=== PATIENT | female | born 1950 | race African-American/Black ===

== ENCOUNTER 2016-09-14 05:24 | Day surgery (SDC) | payer OTHER, BC ==
[~2016-09-14] VITALS: Ht 160 cm; Wt 91.6 kg
--- NOTE | ~2016-09-14 | O ---
[address] [address] OPERATIVE REPORT Name: ERICA BARRERA Room #: 534-P [facility]..#: [id number] Admission: 09/14/16 Attend Phys: Milton De León MD, F Discharge: Date of : 54 Report #: [id number] THIS REPORT FOR: //name// CC: Milton De León [facility] DATE OF SERVICE: 09/14/2016 SURGEON: Milton De León MD SURGICAL ELASTIC KNITTER: Seven Allen MD SECOND HOME CARE GIVER: MANUEL López PREOPERATIVE DIAGNOSES: 1. Morbid obesity (body mass index 40). 2. Right abdominal skin lesion. 3. Obstructive sleep apnea. 4. Hypertension. 5. Arthritis. 6. History of pulmonary embolism. 7. Asthma. 8. Migraine headaches. POSTOPERATIVE DIAGNOSES: 1. Morbid obesity (body mass index 40). 2. Right abdominal skin lesion. 3. Intraabdominal adhesions. 4. Obstructive sleep apnea. 5. Hypertension. 6. Arthritis. 7. History of pulmonary embolism. 8. Asthma. 9. Migraine headaches. PROCEDURES: 1. Laparoscopic sleeve gastrectomy with EGD. 2. Laparoscopic lysis of adhesions. 3. Excision of right abdominal skin lesion. ANESTHESIA: General endotracheal anesthesia and local anesthetic. ESTIMATED BLOOD LOSS: 5 mL. SPECIMEN: Lateral stomach. COMPLICATIONS: None appreciated. [address] [address] OPERATIVE REPORT Name: ERICA BARRERA Room #: 534-P [facility]#: [id number] Admission: 09/14/16 Attend Phys: Milton De León MD, F Discharge: Date of : 54 Report #: [id number] INDICATIONS FOR PROCEDURE: This is a 65-year-old female patient who is morbidly obese with a body mass index of 40 (standing 5 feet 3 inches, weighing 212 pounds at her last visit). Her maximum weight is 240 pounds. She has had issues with her weight over the past several years after having retired and with decreased activity. She also has difficulty with arthritis involving her left knee. She has tried numerous weight loss programs and plans with limited weight loss success. Any amount of weight she has lost, she has quickly regained plus additional weight after stopping the modality. She has numerous associated comorbid conditions and in addition has a history of pulmonary embolism. She had been taking Xarelto up until the past few days before her operation. She has been bridged with Lovenox. She has also been off her prednisone over the past 4-1/2 months and took her last dose of Remicade in late June. She has been cleared from a multidisciplinary standpoint. She presents now for laparoscopic sleeve gastrectomy with EGD. OPERATIVE FINDINGS: On EGD, the patient's esophagus was normal down to the GE junction and Z-line measured at 38 cm from the teeth. The esophagus was normal. There was no evidence for hiatal hernia. The stomach and duodenum down to the third portion showed no polyps, diverticula, masses, or ulcers. On retroflexion of the scope within the antrum, there was no evidence for hiatal hernia. Laparoscopically, the patient had intra-abdominal adhesions in the left upper quadrant, which required takedown (lasting 10 minutes) before I was able to proceed with the operation and placement of the ports. The sleeve staple line was 4 cm from the pylorus, 3 cm lateral to the incisura, and 1 cm lateral to the gastroesophageal junction. There was no evidence for a hiatal hernia. No other significant intraabdominal pathology was identified. There was no evidence for a staple line leak. The leak test involved gently insufflating the stomach with carbon dioxide using the endoscope immediately after applying Tisseel to the staple line. No bubbles were seen forming in the Tisseel. After removal of the stomach from the patient's abdominal cavity, the excised stomach held in nearly 1 liter of fluid. At the conclusion of the operation, the sponge, needle, and instrument counts were correct. No other significant intraabdominal pathology was identified. There was no evidence for iatrogenic injury. DESCRIPTION OF PROCEDURE IN DETAIL: After the benefits and risks of the procedure were explained to the patient, which include, but are not limited to risks of bleeding, infection, risk of staple line leak, postoperative pain, postoperative expectations, informed consent was obtained. The patient was identified in the preoperative holding area. She was given IV antibiotics as documented in the chart in line with the SCIP protocol. The patient was then taken to the operating room and she was placed in the supine position. SCDs were placed on the patient's bilateral lower extremities and pneumatic compression was initiated. The patient was given IV sedation and she was intubated without incident. An orogastric tube and bite block were placed by [address] [address] OPERATIVE REPORT Name: HOLLYERICALAUREN PEREZ Room #: [address] [place] [address] M.R.#: [id number] Admission: 09/14/16 Attend Phys: Milton De León MD, F Discharge: Date of : 54 Report #: [id number] anesthesia. A time-out was then performed to identify the patient and procedure. The patient was placed in the low lying dorsal lithotomy position in [facility]. The patient was secured to the bed on a beanbag that was appropriately deflated. On EGD, the gastroscope was inserted into the patient's oropharynx, passed down the esophagus into the stomach and beyond the pylorus to the duodenum. The scope was then slowly withdrawn. The scope was retroflexed in the antrum of the stomach. The scope was then straightened and slightly withdrawn. The laparoscopic portion was undertaken next. Local anesthetic was infiltrated into the skin and subcutaneous tissue in the left supraumbilical area where a small transverse incision was made. A 5-mm Visiport was placed intraperitoneally with a 0-degree angled laparoscope. Pneumoperitoneum was then achieved with insufflation of carbon dioxide to 15 mmHg. A 30-degree angled laparoscope was inserted. Local anesthetic was infiltrated into the skin and subcutaneous tissue in the right abdomen where a 15-mm transverse incision was made and a 15-mm Visiport was placed intraperitoneally under direct visualization after local anesthetic had been infiltrated into the skin and subcutaneous tissue. The adhesions in the left upper quadrant of the abdomen were then carefully taken down with judicious use of the ultrasonic dissector as well as blunt dissection. After taking these down, I was able to place my other 5-mm ports in the left abdomen. A left mid and left lateral 5 mm port was placed under direct visualization after local anesthetic was infiltrated into the skin and subcutaneous tissue and appropriately sized incisions were made. Operative findings are as noted above. The Nathansen liver retractor was placed next. A small stab wound was made in the subxiphoid area after infiltrating local anesthetic into the area. The Yaritza retractor was used to penetrate the fascia and retract the liver in a cephalad and anterior direction. The retractor was held in place with the iron grinder set up operator internal apparatus. The patient was then placed in the steep reverse Trendelenburg position. The gastroscope and orogastric tube were positioned under my direction by anesthesia. The gastrosplenic ligament and short gastric vessels were then carefully taken down with the ultrasonic dissector with good hemostasis up to the left leia of the diaphragm. Adhesions were taken down along the phrenoesophageal area as well to ensure no hiatal hernia. Dissection was carried inferiorly to transect the gastrosplenic and gastrocolic ligament down to an area of 4 cm proximal to the pylorus. This was measured intraoperatively with a grasper. The stomach was then rotated medially to ensure no posterior attachments to the stomach. The attachments were carefully taken down with blunt dissection and judicious use of the ultrasonic dissector. The orogastric tube was then removed by anesthesia again under my direction. The stapling was commenced. Blue load laparoscopic 65 mm DENEEN staplers buttressed with [address] [address] OPERATIVE REPORT Name: ERICA BARRERA Room #: 534-P [facility]..#: [id number] Admission: 09/14/16 Attend Phys: Milton De León MD, F Discharge: Date of : 54 Report #: [id number] Terra-Strips were used to start the staple line, which moved in a distal to proximal fashion. The gastroscope was used as a 34-[place]izen [place] bougie. After the first two firings of the stapler, the staple loads were changed to the green loads again buttressed with Terra-Strips. The stomach was then transected and placed in the right upper quadrant of the abdomen. The stomach was removed through the 15-mm port. An 0 PDS suture was then used to approximate the fascial opening using the Valentin-Minh laparoscopic fascial closure device. The suture was tagged and the port was replaced. Tisseel was then applied to the gastric staple line using the [employer] aerosolizer. Immediately after doing so, the gastroscope was used to gently insufflate the stomach and slowly withdrawn the scope to ensure good hemostasis endoluminally within the stomach/gastric sleeve and to test for a leak. The leak test as described above was performed with no evidence for leak. The scope was then slowly withdrawn through the patient's oropharynx. The abdominal cavity was then briefly scanned and there was no other pathology or evidence for iatrogenic injury. The sponge, needle, and instrument counts were correct. The Yaritza liver retractor was removed under direct visualization. The abdominal cavity was then desufflated and the fascial suture was tied. The suture was tied under direct visualization prior to full desufflation to ensure no incorporation of intraabdominal content. All ports were removed. Interrupted subcuticular 4-0 Monocryl sutures and Dermabond were used to close the skin incisions. The right abdominal skin lesion was excised next. Local anesthetic was infiltrated into the skin and subcutaneous tissue at the base of the lesion. The lesion was excised sharply. Electrocautery was used to cauterize the edge of the skin to ensure hemostasis. A dressing was applied to this area. The patient tolerated the procedure well. She was awakened, extubated, and taken to recovery room in stable condition with no apparent intraoperative complications. <ELECTRONICALLY SIGNED> By: Milton De León MD, FACS 09/14/16 1531 [id number] 1526 Milton De León MD, FACS /nt
--- NOTE | ~2016-09-14 | S ---
[facility] [place] [address] SURGICAL PATH RPT PROCEDURE Name: ERICA JENNINGS TERENCEONIA Room #: DEP [facility] M.R.#: [id number] Admission: 09/14/16 Date of : 54 Discharge: 09/15/16 Report #: [id number] Path Case #: [id number] PATHOLOGY REPORT COLLECTION DATE: 09/14/2016 RECEIVED DATE: 09/14/2016 SUBMITTING PHYS: Dr. Milton De León OTHER PHYS: Dr. Saad Lux SPECIMEN(S) RECEIVED: A.Gastric sleeve * * * * * * * * * * * * FINAL DIAGNOSIS: "Gastric sleeve," partial gastrectomy: - Gastric mucosa, submucosa, and muscular wall with mild mucosal reactive changes including focal foveolar hyperplasia most consistent with hyperplastic polyp; no dysplasia is seen. (SYBIL:; d/t: 09/17/16) PATHOLOGIST: Nesha Serrato M.D. REPORT ELECTRONICALLY SIGNED BY: Nesha Serrato M.D. DATE/TIME: 09/17/2016 16:38 * * * * * * * * * * * * GROSS PATHOLOGY: The specimen is received in formalin, labeled "Erica Jennings and gastric sleeve." Received is a 20.4 x 4.8 x 2.2 cm slightly curved gastrectomy specimen with a stapled margin of resection and a scant amount of attached adipose tissue. The serosa is pink-pena, diffusely hemorrhagic, wrinkled, and displays adhesions. The james are removed and the specimen is opened to reveal several pink-pena and sessile polyps ranging from 0.2-0.3 cm in greatest dimension. The remaining mucosa is pink-pena and displays the usual rugal folds. Bobbin Inspector sections to include the polyps are submitted in cassette A1. (TTL; 09/14/2016) CLINICAL HISTORY: Morbid obesity, abdominal skin lesion INITIAL CPT CODE(S): A; 33664 Professional services performed by [facility] at [address] [address] SURGICAL PATH RPT PROCEDURE Name: ERICA JENNINGS Room #: [facility] M.R.#: [id number] Admission: 09/14/16 Date of : 54 Discharge: 09/15/16 Report #: [id number] Path Case #: [id number] [facility] [address] [facility] , [place] [address] Technical services performed by [facility] at [address] [place] [address], [facility] [address] [address]. [facility] [address] [place] [address] PHONE: [phone] DIRECTOR: Kelby Aldridge M.D. * * * END OF REPORT * * *
[~2016-09-14 05:24] MED LIST: ACETAMINOPHEN325 M1 PO; ADVAIR 250-501 EACH INH; ALBUTEROL2.5 MG/31 INH; ANASTROZOLE1 MG PO; CEFTIN500 MG PO; CHLORTHALIDONE25 MG PO; COUMADIN 5 MG TA5 M1 PO; DIALYVITE V5000 UNIT PO; DYRENIUM100 MG PO; EFFER-K 10 MEQ10 ME1 PO; ENOXAPARIN100 MG/11 INJECTION; FOLIC ACID1 MG PO; HORMONE THERAPY; HYDROCODON-ACE1 EAC7 PO; IMITREX 50 MG T50 MG PO; LIPITOR40 MG PO; LISINOPRIL-HCT1 EAC2 PO; LISINOPRIL20 MG PO; LOTENSIN20 MG PO; METHOTREXATE 22.5 MG PO; MOBIC15 MG PO; MUCINEX600 MG PO; MULTIVITAMINS1 EAC7 PO; NASONEX17 GM NASAL; OXYCODONE HCL 55 MG PO; PREDNISONE 10 M10 M1; PREDNISONE 10 M10 M1 PO; PREDNISONE 20 M20 M1 PO; PRINZIDE 20-251 EACH PO; PROAIR HFA8.5 GM INH; REMICADE 1100 MG/VIA IV; TRIAMTERENE-HC1 EAC3 PO; XARELTO20 MG PO; ZOCOR80 MG PO; ZOFRAN ODT4 MG PO; ZOMIG ZMT2.5 MG PO; ZPAK PO; [UNRECOGNIZED DRUG - CODE] PO
[2016-09-14 07:00] VITALS: BP 134/69
[2016-09-14 07:48] LABS: CALCIUM 10.3 mg/dL (8.5-10.1); CREATININE 0.9 mg/dL (0.6-1.0)
[2016-09-14 07:52] LABS: POTASSIUM 3.6 mmol/L (3.5-5.1)
[2016-09-14 15:16] VITALS: BP 134/69
[2016-09-14 15:18] VITALS: BP 134/69
[2016-09-14 16:14] VITALS: BP 134/69
[2016-09-14 20:12] VITALS: BP 127/68
[2016-09-15 04:24] VITALS: BP 127/67
[2016-09-15 05:36] LABS: ABSOLUTE NEUTROPHILS 9.7 thou/uL (1.4-8.2); BASOPHILS 0.4 % (0.0-2.0); HEMATOCRIT 35.1 % (37.0-47.0); HEMOGLOBIN 11.7 gm/dL (12.0-15.0); LYMPHOCYTES 12.6 % (24.0-44.0); MCH 29.4 pg (26.0-34.0); MCHC 33.3 g/dL (28.0-37.0); MCV 88.2 fL (80.0-100.0); MONOCYTES 6.5 % (1.0-8.0); PLATELET COUNT 334 thou/uL (150-400); POLYS 80.5 % (36.0-66.0); RBC 3.98 mil/uL (4.20-5.00); RDW 15.8 % (10.5-14.5)
[2016-09-15 05:47] LABS: CALCIUM 8.6 mg/dL (8.5-10.1); CREATININE 1.2 mg/dL (0.6-1.0)
[2016-09-15 06:03] LABS: MANUAL DIFF NO
[2016-09-15 08:32] VITALS: BP 119/61
[2016-09-15 11:56] VITALS: BP 134/69
== END 2016-09-15 14:15 | disposition home or self-care (01) ==
LOC: TBA 05:24 → OR 05:24 → TBA 05:29 → 5S 10:31 → OR 13:46
PROVIDERS: Anesthesiology; Surgery
DX: E66.01 Morbid (severe) obesity due to excess calories (principal); Z68.41 Body mass index [BMI] 40.0-44.9, adult; G47.33 Obstructive sleep apnea (adult) (pediatric); I10 Essential (primary) hypertension; G43.109 Migraine with aura, not intractable, without status migrainosus; J45.909 Unspecified asthma, uncomplicated; I26.99 Other pulmonary embolism without acute cor pulmonale; M19.90 Unspecified osteoarthritis, unspecified site; R10.0 Acute abdomen; K66.0 Peritoneal adhesions (postprocedural) (postinfection)
CPT/HCPCS: 50010; 50101; 50222; 50249; 50386; 50555; 50739; 50740; 50962; 51437; 52182; 52265; 53307; 53311; 54022; 54118; 56462; 56525; 56526; 57092; 62110; 62900; 64031; 70005

== ENCOUNTER → 2016-12-07 | Outpatient (CLI) | payer OTHER, BC ==
--- NOTE | ~2016-12-07 | 2DMMODE ---
[facility] [address] [place] [address] 2 D/M-MODE ECHOCARDIOGRAM Name: ERICA BARRERA Room #: REG [facility]#: [id number] Admission: 12/07/16 Attend Phys: Gifty Nguyen Discharge: Date of : 54 Date of Service: 12/07/16 1714 Report #: [id number] THIS REPORT FOR: //name// APPROVED REPORT Study performed: 12/07/2016 14:16:43 EXAM: Comprehensive 2D, Doppler, and color-flow Echocardiogram Patient Location: Echo lab Status: routine Other Information Study Quality: Adequate Indications Pulmonary Hypertension 2D Dimensions RVDd: 37.77 mm LVEF(%): 68.54 (>50%) IVSd: 8.56 (7-11mm) LVOT Diam: 17.84 (18-24mm) LVDd: 44.25 mm PWd: 8.10 (7-11mm) Ascending Ao: 28.39 (22-36mm) LVDs: 27.38 (25-40mm) Aortic Root: 23.86 mm IVC: 8.00 mm Dimas's LVEF: 68.54 % Volumes Left Atrial Volume (Systole) Single Plane 4CH: 49.10 mL Single Plane 2CH: 31.92 mL LA ESV Index: 24.00 mL/m2 Aortic Valve AoV Peak Rell.: 1.46 m/s AO Peak Gr.: 8.53 mmHg LVOT Max P.53 mmHg LVOT Max V: 1.18 m/s GLADYS Vmax: 2.01 cm2 Mitral Valve E/A Ratio: 1.4 MV Decel. Time: 210.77 ms MV E Max Rell.: 1.15 m/s MV A Rell.: 0.82 m/s MV PHT: 61.12 ms IVRT: 86.51 ms [facility] [address] [place] [address] 2 D/M-MODE ECHOCARDIOGRAM Name: ERICA BARRERA Room #: [facility]#: [id number] Admission: 12/07/16 Attend Phys: Gifty Nguyen Discharge: Date of : 54 Date of Service: 12/07/16 1714 Report #: [id number] Pulmonary Valve PV Peak Rell.: 1.02 m/s PV Peak Gr.: 4.18 mmHg Pulmonary Vein P Vein S: 0.43 m/s P Vein A: 0.20 m/s P Vein D: 0.31 m/s P Vein A Dur.: 100.3 msec P Vein S/D Ratio: 1.39 Tricuspid Valve TR Peak Rell.: 3.23 m/s RAP Estimate: 5.00 mmHg TR Peak Gr.: 41.82 mmHg Left Ventricle The left ventricle is normal size. There is normal LV segmental wall motion. There is normal LV segmental wall motion. There is normal left ventricular wall thickness. The left ventricular systolic function is normal. The left ventricular ejection fraction is within the normal range. LVEF is 65%. Moderate diastolic dysfunction is present (pseudonormal filling). Right Ventricle Right ventricle is at the upper limits of normal. The right ventricular systolic function is normal. Atria The left atrium size is normal. The right atrium size is mildly enlarged Aortic Valve The aortic valve is mildly sclerotic No aortic regurgitation is present. There is no aortic valvular stenosis. Mitral Valve The mitral valve is normal in structure. Trace to mild mitral regurgitation. No evidence of mitral valve stenosis. Tricuspid Valve The tricuspid valve is normal in structure. There is mild to moderate tricuspid regurgitation. The right atrial pressure is estimated at 5 mmHg and PAP estimated at 47 mmHg. Pulmonic Valve The pulmonary valve is normal in structure. Trace pulmonic regurgitation. [address] [address] 2 D/M-MODE ECHOCARDIOGRAM Name: ERICA BARRERA Room #: REG [facility]#: [id number] Admission: 12/07/16 Attend Phys: Gifty Nguyen Discharge: Date of : 54 Date of Service: 12/07/16 1714 Report #: [id number] Great Vessels The aortic root is normal in size. IVC is normal in size and collapses >50% with inspiration. Pericardium There is no pericardial effusion. <Conclusion> The left ventricular systolic global and regional function are normal. LVEF is 65%. The right atrium size is mildly enlarged The aortic valve is mildly sclerotic. No aortic stenosis or regurgitation The mitral valve is normal in structure. Mild mitral regurgitation. There is mild to moderate tricuspid regurgitation. The right atrial pressure is estimated at 5 mmHg and PAP estimated at 47 mmHg. No pericardial effusion <ELECTRONICALLY SIGNED> By: Raul Hope MD, [facility] 12/07/161713 13 13 Raul Hope MD, FAC /INF
== END ==
LOC: CV 13:13
DX: I27.2 Other secondary pulmonary hypertension (principal); I08.1 Rheumatic disorders of both mitral and tricuspid valves

== ENCOUNTER → 2017-11-20 | Outpatient (CLI) | payer OTHER, BC ==
[~2017-11-20] MED LIST changes: +LIDOCAINE35.44 GM; +NASCOBAL1 EACH NASAL; +OXYGEN NASAL; +XARELTO15 MG PO
--- NOTE | ~2017-11-20 | 2DMMODE ---
[facility] [address] [place] [address] 2 D/M-MODE ECHOCARDIOGRAM Name: ERICA BARRERA Room #: REG [facility]#: [id number] Admission: 11/20/17 Attend Phys: Gifty Nguyen Discharge: Date of : 54 Date of Service: 11/20/17 1211 Report #: [id number] THIS REPORT FOR: //name// APPROVED REPORT Study performed: 11/20/2017 11:03:08 EXAM: Comprehensive 2D, Doppler, and color-flow Echocardiogram Patient Location: Out-Patient Status: routine BSA: 1.65 HR: 65 bpm BP: 129/84 mmHg Rhythm: Sinus arrhythmia Other Information Study Quality: Adequate Indications Pulmonary Hypertension Hx: pulmonary embolism, PHTN 2D Dimensions RVDd: 33.31 mm LVEF(%): 57.61 (>50%) IVSd: 8.28 (7-11mm) LVOT Diam: 18.90 (18-24mm) LVDd: 44.18 mm PWd: 7.87 (7-11mm) Ascending Ao: 31.27 (22-36mm) LVDs: 30.87 (25-40mm) Aortic Root: 28.77 mm Dimas's LVEF: 57.61 % Volumes Left Atrial Volume (Systole) Single Plane 4CH: 33.49 mL Single Plane 2CH: 37.32 mL LA ESV Index: 24.00 mL/m2 Aortic Valve AoV Peak Rell.: 1.80 m/s AO Peak Gr.: 12.94 mmHg LVOT Max P.25 mmHg LVOT Max V: 1.52 m/s GLADYS Vmax: 2.37 cm2 Mitral Valve E/A Ratio: 1.1 [facility] [address] [place] [address] 2 D/M-MODE ECHOCARDIOGRAM Name: ERICA BARRERA Room #: [facility]#: [id number] Admission: 11/20/17 Attend Phys: Gifty Nguyen Discharge: Date of : 54 Date of Service: 11/20/17 1211 Report #: [id number] MV Decel. Time: 203.23 ms MV E Max Rell.: 1.10 m/s MV A Rell.: 0.99 m/s MV PHT: 58.94 ms IVRT: 72.66 ms Pulmonary Valve PV Peak Rell.: 1.23 m/s PV Peak Gr.: 6.09 mmHg Pulmonary Vein P Vein S: 0.58 m/s P Vein A: 0.34 m/s P Vein D: 0.56 m/s P Vein A Dur.: 156.9 msec P Vein S/D Ratio: 1.04 Tricuspid Valve TR Peak Rell.: 3.07 m/s RAP Estimate: 5.00 mmHg TR Peak Gr.: 37.70 mmHg PA Pressure: 43.00 mmHg Left Ventricle The left ventricle is normal size. There is normal LV segmental wall motion. There is normal left ventricular wall thickness. Left ventricular systolic function is normal. LVEF is 55-60%. Left ventricular filling pattern is normal for age. Right Ventricle The right ventricle is normal size. The right ventricular systolic function is normal. Atria The left atrium size is normal. The right atrium size is normal. Aortic Valve The aortic valve is normal in structure. No aortic regurgitation is present. There is no aortic valvular stenosis. Mitral Valve The mitral valve is normal in structure. Trace to mild mitral regurgitation. No evidence of mitral valve stenosis. Tricuspid Valve The tricuspid valve is normal in structure. Mild to moderate tricuspid regurgitation. Estimated PAP is 40-45mmHg. Pulmonic Valve [address] [address] 2 D/M-MODE ECHOCARDIOGRAM Name: HOLLYERICA Room #: REG [facility]#: [id number] Admission: 11/20/17 Attend Phys: Gifty Nguyen Discharge: Date of : 54 Date of Service: 11/20/17 1211 Report #: [id number] The pulmonary valve is normal in structure. Trace pulmonic regurgitation. Great Vessels The aortic root is normal in size. The ascending aorta is normal in size. IVC is normal in size and collapses >50% with inspiration. Pericardium Trace to small pericardial effusion <Conclusion> Left ventricular systolic function is normal. There is normal LV segmental wall motion. LVEF is 55-60%. Normal diastolic function The aortic valve is normal in structure. No aortic regurgitation or stenosis The mitral valve is normal in structure. Trace to mild mitral regurgitation. Mild to moderate tricuspid regurgitation. Estimated pulmonary artery pressure of 40-45mmHg. Trace to small pericardial effusion <ELECTRONICALLY SIGNED> By: Raul Hope MD, FACC 11/20/17 121 10 10 Raul Hope MD, FACC /INF
== END ==
LOC: CV 08:50
DX: I08.1 Rheumatic disorders of both mitral and tricuspid valves (principal); I27.20 Pulmonary hypertension, unspecified

== ENCOUNTER 2021-07-22 08:07 | Emergency (ER) | payer OTHER, BC ==
[~2021-07-22] VITALS: Ht 157.5 cm; Wt 76.2 kg
[2021-07-22 09:55] LABS: ABSOLUTE NEUTROPHILS 4.6 thou/uL (1.4-8.2); BASOPHILS 1.8 % (0.0-2.0); LYMPHOCYTES 26.7 % (24.0-44.0); MCH 28.6 pg (26.0-34.0); MCHC 33.4 g/dL (28.0-37.0); MCV 85.5 fL (80.0-100.0); MONOCYTES 8.8 % (1.0-8.0); PLATELET COUNT 349 thou/uL (150-400); POLYS 61.7 % (36.0-66.0); RBC 4.22 mil/uL (4.20-5.00); RDW 14.4 % (10.5-14.5); WBC 7.5 thou/uL (4.0-11.0)
[2021-07-22 11:22] LABS: CALCIUM 9.7 mg/dL (8.5-10.1); POTASSIUM 3.3 mmol/L (3.5-5.1)
[2021-07-22 11:27] LABS: TOTAL BILIRUBIN 0.5 mg/dL (0.2-1.0); TOTAL PROTEIN 7.9 g/dL (6.4-8.2)
--- NOTE | 2021-07-22 11:28 | EKG ---
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1950 Requested By: Monster Faulkner Order Number: [id number] MD: Raul Hope Measurements Intervals [place] Rate: 79 P: -6 MN: 151 QRS: 7 QRSD: 90 T: 26 QT: 389 QTc: 447 Interpretive Statements Sinus rhythm Multiple ventricular premature complexes Compared to ECG 03/31/2017 11:26:59 Ventricular premature complex(es) now present Electronically Signed On 07-22-2021 11:28:26 ACQUISITION EDITOR by Raul Hope [email or web address] <ELECTRONICALLY SIGNED> By: Raul Hope MD, [facility] 07/22/21 1128 0825 0825 Raul Hope MD, FACC /EPI
[2021-07-22 11:36] VITALS: BP 125/84
[2021-07-22 12:03] LABS: APTT 27.6 Seconds (24.5-32.8); D-DIMER 0.54 ug/mLFEU (0.19-0.50); INR 1.37; PROTIME 14.7 Seconds (10.5-12.1)
[2021-07-22] MEDS ORDERED: NEXIUM40 MG PO ×2 (14:19→14:36)
== END 2021-07-22 14:39 | disposition home or self-care (01) ==
LOC: ER 08:07
PROVIDERS: Emergency Medicine
DX: M89.8X1 Other specified disorders of bone, shoulder (principal); R55 Syncope and collapse; R60.9 Edema, unspecified; I48.91 Unspecified atrial fibrillation; I10 Essential (primary) hypertension; J45.909 Unspecified asthma, uncomplicated; E78.5 Hyperlipidemia, unspecified; G43.909 Migraine, unspecified, not intractable, without status migrainosus; M06.9 Rheumatoid arthritis, unspecified; Z90.89 Acquired absence of other organs; Z90.710 Acquired absence of both cervix and uterus; Z98.890 Other specified postprocedural states; Z85.3 Personal history of malignant neoplasm of breast; Z79.51 Long term (current) use of inhaled steroids; Z79.899 Other long term (current) drug therapy; Z79.891 Long term (current) use of opiate analgesic; Z88.1 Allergy status to other antibiotic agents; Z88.6 Allergy status to analgesic agent; Z88.8 Allergy status to other drugs, medicaments and biological substances